=== PATIENT | female | born 1960 | race Caucasian/White ===

== ENCOUNTER 2017-05-28 11:56 | Inpatient (IN) | payer BC ==
[~2017-05-28] VITALS: Ht 162.6 cm; Wt 83.9 kg
[~2017-05-28 11:56] MED LIST: LEVO75TA68 PO; MULT-1379 PO; THYR97.55 PO; TRAZ150T8 PO; WARF-18 PO
--- NOTE | 2017-05-28 11:59 | ER Report ---
History and Physical Time Seen By MD: 11:58 Hx. of Stated Complaint: Alcohol withdrawal diarrhea HPI/ROS Patient is a 57-year-old female chronic alcoholic states that she drinks half of the 5th of vodka daily . binge drink increased her intake the last 2 days last drink was in the middle of the night and since then she has become jittery and nauseated having several bouts of diarrhea Remainder of the 14 system rev: Yes Allergies: Coded Allergies: heparin (Verified Allergy, Severe, 01/05/17) Home Meds Reported Medications Cetirizine Hcl (ZYRTEC) 10 Mg Capsule, 10 MG PO QDAY, CAPSULE 05/28/17 Citalopram Hydrobromide (CELEXA) 10 Mg Tablet, 10 MG PO QDAY, #5 TAB 05/28/17 Thyroid,Pork (NATURE-THROID) 97.5 Mg Tablet, 97.5 MG PO QAM 01/06/17 Warfarin Sodium (WARFARIN SODIUM) 5 Mg Tablet, 2-4 MG PO QODAY, TAB TAKE 2MG ON TUE, SUSAN, SAT. TAKE 4MG ON MON, WED, THU, SUN. 01/05/17 Discontinued Reported Medications Multivits,Th W-Fe,Other Min (THERA-M) 1 Each Tablet, 1 EACH PO QDAY 01/08/17 Trazodone Hcl (TRAZODONE HCL) 150 Mg Tablet, 50-150 MG PO QHS TAKE 50-150 MG NEEDED ABOUT AN HOUR BEFORE YOU PLAN TO GO TO [facility]. 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?? 89 Resp 24 18 10 B/P (MAP) 135/84 (101) Pulse Ox 92 92 05/28/17 05/28/17 05/28/17 05/28/17 14:30 14:31 14:36 14:51 Pulse 89 84 90 Resp 16 13 22 B/P (MAP) 135/83 (100) Pulse Ox 93 05/28/17 05/28/17 05/28/17 05/28/17 15:00 15:06 15:16 15:21 Pulse 86 88 Resp 17 20 B/P (MAP) 131/82 (98) O2 Flow Rate 1.0 05/28/17 05/28/17 15:30 15:36 Pulse 89 Resp 19 B/P (MAP) 132/78 (96) Intake and Output 05/28/17 05/28/17 05/29/17 15:00 23:00 07:00 Intake Total 1000 ml Balance 1000 ml Physical Exam 57-year-old female alert anxious HEENT has normocephalic atraumatic tympanic membranes are non-reddened throat mucous membranes are dry neck is supple no JVD heart rate is tachycardic and sinus tach in the 140s on the monitor lungs clear to auscultation abdomen is obese she has hyperactive bowel sounds moves all extremities no peripheral edema Medical Decision Making Data Points Result Diagram: 05/28/17 1241 05/28/17 1241 Laboratory Hematology Test 05/28/17 12:41 05/28/17 14:02 05/28/17 14:36 Red Blood Count 5.48 M/uL (4.17-5.56) Mean Corpuscular Volume 90.7 fL (80.0-96.0) Mean Corpuscular Hemoglobin 30.6 pg (26.0-33.0) Mean Corpuscular Hemoglobin Concent 33.7 g/dL (32.0-36.0) Red Cell Distribution Width 13.9 % (11.5-14.5) Mean Platelet Volume 8.4 fL (7.2-11.1) Neutrophils (%) (Auto) 74.1 % (39.4-72.5) Lymphocytes (%) (Auto) 18.1 % (17.6-49.6) Monocytes (%) (Auto) 6.4 % (4.1-12.4) Eosinophils (%) (Auto) 0.1 % (0.4-6.7) Basophils (%) (Auto) 1.3 % (0.3-1.4) Nucleated RBC Relative Count (auto) 0.1 /100WBC Neutrophils # (Auto) 2.8 K/uL (2.0-7.4) Lymphocytes # (Auto) 0.7 K/uL (1.3-3.6) Monocytes # (Auto) 0.2 K/uL (0.3-1.0) Eosinophils # (Auto) 0.0 K/uL (0.0-0.5) Basophils # (Auto) 0.0 K/uL (0.0-0.1) Nucleated RBC Absolute Count (auto) 0.00 K/uL Prothrombin Time 70.0 seconds (12.0-14.4) Prothromb Time International Ratio 7.78 Sodium Level 141 mmol/L (137-145) Potassium Level 3.9 mmol/L (3.5-5.0) Chloride Level 106 mmol/L (98-107) Carbon Dioxide Level 20 mmol/L (22-31) Blood Urea Nitrogen 13 mg/dl (7-18) Creatinine 0.90 mg/dl (0.52-1.04) Glomerular Filtration Rate Calc > 60.0 Random Glucose 91 mg/dl (75-110) Calcium Level 8.9 mg/dl (8.4-10.2) Magnesium Level 1.7 mg/dl (1.7-2.2) Total Bilirubin 0.8 mg/dl (0.2-1.3) Aspartate Amino Transf (AST/SGOT) 47 U/L (0-35) Alanine Aminotransferase (ALT/SGPT) 51 U/L (0-56) Alkaline Phosphatase 97 U/L (0-126) Total Protein 6.7 gm/dl (6.3-8.2) Albumin 4.0 g/dl (3.5-5.0) Thyroid Stimulating Hormone (TSH) 0.78 uIU/ml (0.46-4.68) Salicylates Level < 10 mg/L Salicylate Last Dose Date unk Acetaminophen Level < 10 ug/ml Serum Alcohol 47 mg/dl Urine Color Yellow Urine Clarity Clear Urine pH 6.0 pH (4.8-9.5) Urine Specific [place] 1.017 Urine Protein 30 mg/dL (NEGATIVE) Urine Glucose (UA) Negative mg/dL (NEGATIVE) Urine Ketones 20 mg/dL (NEGATIVE) Urine Blood Negative (NEGATIVE) Urine Nitrite Negative (NEGATIVE) Urine Bilirubin Negative (NEGATIVE) Urine Urobilinogen 2.0 mg/dL (0.2-1.9) Urine Leukocyte Esterase Trace (NEGATIVE) Urine RBC 3 /HPF (0-2/HPF) Urine WBC 4 /HPF (0-5/HPF) Urine Squamous Epithelial Cells Many /LPF (</=FEW) Urine Transitional Epithelial Cells Few /LPF (NONE-FEW) Urine Bacteria Negative /HPF (NONE-FEW) Urine Hyaline Casts Few /LPF (NONE-FEW) Urine Mucus Few /HPF (NONE-FEW) Urine Opiates Screen Negative Urine Barbiturates Screen Negative Ur Tricyclic Antidepressants Screen Negative Urine Phencyclidine Screen Negative Urine Amphetamines Screen Negative Urine Benzodiazepines Screen Negative Urine Cocaine Screen Negative Urine Cannabinoids Screen Negative Troponin I < 0.012 ng/ml Chemistry Test 05/28/17 12:41 05/28/17 14:02 05/28/17 14:36 White Blood Count 3.7 k/uL (4.5-11.0) Red Blood Count 5.48 M/uL (4.17-5.56) Hemoglobin 16.8 g/dL (12.0-16.0) Hematocrit 49.7 % (34.0-47.0) Mean Corpuscular Volume 90.7 fL (80.0-96.0) Mean Corpuscular Hemoglobin 30.6 pg (26.0-33.0) Mean Corpuscular Hemoglobin Concent 33.7 g/dL (32.0-36.0) Red Cell Distribution Width 13.9 % (11.5-14.5) Platelet Count 108 K/uL (150-450) Mean Platelet Volume 8.4 fL (7.2-11.1) Neutrophils (%) (Auto) 74.1 % (39.4-72.5) Lymphocytes (%) (Auto) 18.1 % (17.6-49.6) Monocytes (%) (Auto) 6.4 % (4.1-12.4) Eosinophils (%) (Auto) 0.1 % (0.4-6.7) Basophils (%) (Auto) 1.3 % (0.3-1.4) Nucleated RBC Relative Count (auto) 0.1 /100WBC Neutrophils # (Auto) 2.8 K/uL (2.0-7.4) Lymphocytes # (Auto) 0.7 K/uL (1.3-3.6) Monocytes # (Auto) 0.2 K/uL (0.3-1.0) Eosinophils # (Auto) 0.0 K/uL (0.0-0.5) Basophils # (Auto) 0.0 K/uL (0.0-0.1) Nucleated RBC Absolute Count (auto) 0.00 K/uL Prothrombin Time 70.0 seconds (12.0-14.4) Prothromb Time International Ratio 7.78 Glomerular Filtration Rate Calc > 60.0 Calcium Level 8.9 mg/dl (8.4-10.2) Magnesium Level 1.7 mg/dl (1.7-2.2) Total Bilirubin 0.8 mg/dl (0.2-1.3) Aspartate Amino Transf (AST/SGOT) 47 U/L (0-35) Alanine Aminotransferase (ALT/SGPT) 51 U/L (0-56) Alkaline Phosphatase 97 U/L (0-126) Total Protein 6.7 gm/dl (6.3-8.2) Albumin 4.0 g/dl (3.5-5.0) Thyroid Stimulating Hormone (TSH) 0.78 uIU/ml (0.46-4.68) Salicylates Level < 10 mg/L Salicylate Last Dose Date unk Acetaminophen Level < 10 ug/ml Serum Alcohol 47 mg/dl Urine Color Yellow Urine Clarity Clear Urine pH 6.0 pH (4.8-9.5) Urine Specific [place] 1.017 Urine Protein 30 mg/dL (NEGATIVE) Urine Glucose (UA) Negative mg/dL (NEGATIVE) Urine Ketones 20 mg/dL (NEGATIVE) Urine Blood Negative (NEGATIVE) Urine Nitrite Negative (NEGATIVE) Urine Bilirubin Negative (NEGATIVE) Urine Urobilinogen 2.0 mg/dL (0.2-1.9) Urine Leukocyte Esterase Trace (NEGATIVE) Urine RBC 3 /HPF (0-2/HPF) Urine WBC 4 /HPF (0-5/HPF) Urine Squamous Epithelial Cells Many /LPF (</=FEW) Urine Transitional Epithelial Cells Few /LPF (NONE-FEW) Urine Bacteria Negative /HPF (NONE-FEW) Urine Hyaline Casts Few /LPF (NONE-FEW) Urine Mucus Few /HPF (NONE-FEW) Urine Opiates Screen Negative Urine Barbiturates Screen Negative Ur Tricyclic Antidepressants Screen Negative Urine Phencyclidine Screen Negative Urine Amphetamines Screen Negative Urine Benzodiazepines Screen Negative Urine Cocaine Screen Negative Urine Cannabinoids Screen Negative Troponin I < 0.012 ng/ml Coagulation Test 05/28/17 12:41 Prothrombin Time 70.0 seconds Prothromb Time International Ratio 7.78 Toxicology Test 05/28/17 12:41 05/28/17 14:02 Salicylates Level < 10 mg/L Salicylate Last Dose Date unk Acetaminophen Level < 10 ug/ml Serum Alcohol 47 mg/dl Urine Opiates Screen Negative Urine Barbiturates Screen Negative Ur Tricyclic Antidepressants Screen Negative Urine Phencyclidine Screen Negative Urine Amphetamines Screen Negative Urine Benzodiazepines Screen Negative Urine Cocaine Screen Negative Urine Cannabinoids Screen Negative Urinalysis Test 05/28/17 14:02 Urine Color Yellow Urine Clarity Clear Urine pH 6.0 pH (4.8-9.5) Urine Specific [place] 1.017 Urine Protein 30 mg/dL (NEGATIVE) Urine Glucose (UA) Negative mg/dL (NEGATIVE) Urine Ketones 20 mg/dL (NEGATIVE) Urine Blood Negative (NEGATIVE) Urine Nitrite Negative (NEGATIVE) Urine Bilirubin Negative (NEGATIVE) Urine Urobilinogen 2.0 mg/dL (0.2-1.9) Urine Leukocyte Esterase Trace (NEGATIVE) Urine RBC 3 /HPF (0-2/HPF) Urine WBC 4 /HPF (0-5/HPF) Urine Squamous Epithelial Cells Many /LPF (</=FEW) Urine Transitional Epithelial Cells Few /LPF (NONE-FEW) Urine Bacteria Negative /HPF (NONE-FEW) Urine Hyaline Casts Few /LPF (NONE-FEW) Urine Mucus Few /HPF (NONE-FEW) EKG/Imaging EKG Interpretation ekg at 1215 sinus tach rate 143 variable on bedside monitor, st depression inferiorly secondary to rate , 2nd EKG at 1422 normal sinus rate 92 QTCs 452 ED Course/Re-evaluation Clinical Indication for ER IV: Hydration ED Course On admission patient had heart rate of 140s initial EKG showed some ST depression inferior leads on negative troponin at that time was repeated 2 hours later after patient received a liter of normal saline banana bag at 1 25 mL an hour 2 mg of Ativan IV and the 2nd EKG showing normal sinus rhythm no ST changes 2nd troponin is negative Re-evaluation Dr. Stephen called he asked us to admit medically because of the patient's elevated INR of 7.[address] De La Cruz and he agrees to admit this patient. inr was elevated 5 mg coumadin po Decision to Disposition Date: May 28, 2017 Decision to Disposition Time: 15:23 Depart Departure Latest Vital Signs Vital Signs Date Time Temp Pulse Resp B/P (MAP) Pulse Ox O2 Delivery O2 Flow Rate FiO2 05/28/17 15:36 89 19 05/28/17 15:30 132/78 (96) 05/28/17 15:16 1.0 05/28/17 14:31 93 05/28/17 12:02 98.0 Room Air Impression: Primary Impression: Alcohol abuse Additional Impressions: Alcohol withdrawal Supratherapeutic INR EKG abnormality Condition: Improved Disposition: Admitted from ER Problem Qualifiers LUIS BERRY May 28, 2017 11:59
[2017-05-28] MEDS ORDERED: NS(*) 0.9% 1000 ML BAG 1,000 ML IV ONE (12:07)
[2017-05-28] MEDS ORDERED: THIAMINE HCL(*) 200 MG/2 ML IN 100 MG, FOLIC ACID(*) 50 MG/10 ML INJ 1 MG, MULTIVITAMIN... IV ONE (12:07)
[2017-05-28] MEDS ORDERED: LORazepam 2 MG/ML VIAL IVP ONE (12:10)
[2017-05-28] MEDS ORDERED: CETI10CA8 PO (12:10)
[2017-05-28] MEDS ORDERED: CITA-155 PO (12:10)
[2017-05-28 12:54] LABS: PLATELET COUNT, AUTOMATED 108 K/uL (150-450)
[2017-05-28 13:23] LABS: INR 7.78
[2017-05-28] MEDS ORDERED: PHYTONADIONE 5 MG TAB PO ONE (13:30)
--- NOTE | 2017-05-28 13:48 | EKG ---
FACILITY: [facility] PATIENT NAME: MARÍA JEFFREY : [id number] MR: [id number] V: [id number] EXAM DATE: ORDERING PHYSICIAN: LUIS BERRY TECHNOLOGIST: MICAELA Yarbrough Reason : CHEMICAL EXP. Blood Pressure : / mmHG Vent. Rate : 143 BPM Atrial Rate : 143 BPM P-R Int : 164 ms QRS Dur : 068 ms QT Int : 318 ms P-R-T Axes : 000 -32 -70 degrees QTc Int : 490 ms Sinus tachycardia with occasional Left axis deviation Marked ST abnormality, possible inferior subendocardial injury Abnormal ECG When compared with ECG of 05-JAN-2017 20:59, Significant changes have occurred Confirmed by YULIANA VOGT ([id number]) on 05/29/2017 2:32:32 AM Referred By: ER Confirmed By:YULIANA VOGT
--- NOTE | 2017-05-28 14:28 | EKG ---
FACILITY: [facility] PATIENT NAME: MARÍA JEFFREY : [id number] MR: [id number] V: [id number] EXAM DATE: ORDERING PHYSICIAN: LUIS BERRY TECHNOLOGIST: MICAELA Yarbrough Reason : REPEAT Blood Pressure : / mmHG Vent. Rate : 092 BPM Atrial Rate : 092 BPM P-R Int : 148 ms QRS Dur : 072 ms QT Int : 366 ms P-R-T Axes : 012 -07 -11 degrees QTc Int : 452 ms Sinus rhythm with premature atrial complexes Otherwise normal ECG When compared with ECG of 28-MAY-2017 12:15, fusion complexes are no longer present premature ventricular complexes are no longer present premature atrial complexes are now present Vent. rate has decreased BY [address] no longer depressed in Inferior leads ST no longer depressed in Anterolateral leads T wave inversion less evident in Inferior leads Confirmed by YULIANA VOGT ([id number]) on 05/29/2017 2:33:05 AM Referred By: KRISTI Confirmed By:YULIANA VOGT
[2017-05-28 16:31] VITALS: BP 119/78
[2017-05-28] MEDS ORDERED: DIAZEPAM 10 MG TAB PO PRN ×2 (17:15)
--- NOTE | 2017-05-28 17:24 | History & Physical ---
History of Present Illness Chief Complaint Alcohol withdrawal History of Present Illness This patient presented to the emergency room complaining of feeling lightheaded and shaking. She desires alcohol cessation and admission to [facility], but was found to have an elevated INR. She reports taking warfarin for a history of clotting disorder. Her dose was recently decreased. History Problems: (1) Mesenteric thrombosis (2) History of appendectomy (3) History of cholecystectomy (4) History of bowel resection (5) Hypothyroid Home Meds Reported Medications Cetirizine Hcl (ZYRTEC) 10 Mg Capsule, 10 MG PO QDAY, CAPSULE 05/28/17 Citalopram Hydrobromide (CELEXA) 10 Mg Tablet, 10 MG PO QDAY, #5 TAB 05/28/17 Thyroid,Pork (NATURE-THROID) 97.5 Mg Tablet, 97.5 MG PO QAM 01/06/17 Warfarin Sodium (WARFARIN SODIUM) 5 Mg Tablet, 2-4 MG PO QODAY, TAB TAKE 2MG ON TUE, SUSAN, SAT. TAKE 4MG ON THU, THU, THU, SUN. 01/05/17 Discontinued Reported Medications Multivits,Th W-Fe,Other Min (THERA-M) 1 Each Tablet, 1 EACH PO QDAY 01/08/17 Trazodone Hcl (TRAZODONE HCL) 150 Mg Tablet, 50-150 MG PO QHS TAKE 50-150 MG NEEDED ABOUT AN HOUR BEFORE YOU PLAN TO GO TO [facility]. 01/08/17 Allergies: Coded Allergies: heparin (Verified Allergy, Severe, 01/05/17) Hx Smoking: No Smoking Status: Never Smoker Exposure to Second Hand Smoke?: No Caffeine Intake: Coffee Caffeine/Cups Per Day: 1 Hx Alcohol Use: Yes Alcohol Withdrawl Symptoms: Tremors, Heart Racing Hx Substance Use Disorder: No Social Drug Use: Never Review of Systems All Systems Reviewed/Normal: Yes Exam Vital Signs Vital Signs Date Time Temp Pulse Resp B/P (MAP) Pulse Ox O2 Delivery O2 Flow Rate FiO2 05/28/17 16:31 98.0 80 16 119/78 (92) 96 Nasal Cannula 2.0 Neuro: No Gross deficits Eyes: PERRLA Cardiovascular: Regular Rate and Rhythm Respiratory: Clear to Auscultation GI: Abd Soft and Non-Tender Extremities: No Edema Integumentary: No Cyanosis Medical Decision Making Data Points Result Diagram: 05/28/17 1241 05/28/17 1241 Item Value Date Time Prothromb Time International Ratio 7.78 *H 05/28/17 1241 Assessment and Plan Problems: (1) Alcohol withdrawal Assessment & Plan: She has been placed on CIWA protocol. Thiamine has also been ordered. She desires transfer to [facility] once her acute medical issues have resolved. (2) Supratherapeutic INR Status: Acute Assessment & Plan: She was previously on Xarelto secondary to a history of mesenteric thrombosis. She converted to warfarin when she lost insurance, but now has reestablished medical coverage. She received a dose of vitamin K in the emergency department and daily INR monitoring has been ordered. There is no evidence of active bleeding. The plan will be to convert her back to Xarelto once her INR is improved. (3) Hypothyroid Assessment & Plan: She is on chronic treatment with thyroid [place]. Copies to: KELLY ISSA DO Venous Thromboembolism Antithrombotics Is Pt On Any Antithrombotics?: Yes Exam Sepsis Risk: No Definite Risk YULIANA VOGT DO May 28, 2017 17:24
[2017-05-28 19:00] VITALS: BP 130/62
[2017-05-28 22:53] VITALS: BP 132/76
[2017-05-29 03:11] VITALS: BP 132/76
[2017-05-29 06:11] LABS: PLATELET COUNT, AUTOMATED 90 K/uL (150-450)
[2017-05-29 06:15] LABS: INR 3.83
[2017-05-29] MEDS ORDERED: THYROID PORK 97.5 MG PO SCH ×2 (06:30→09:00)
[2017-05-29 08:12] VITALS: BP 146/83
[2017-05-29] MEDS ORDERED: FOLI-68 PO (08:16)
[2017-05-29] MEDS ORDERED: THIA100T58 PO (08:16)
--- NOTE | 2017-05-29 08:27 | Hospitalist Depart ---
Discharge Summary Reason for Hosp/Final Diag: (1) Alcohol withdrawal Hospital Course & Plan: She was placed on CIWA protocol and B vitamin supplementation. She did well while on medical floor. She will be transferred to [facility], as her acute medical issues have been stabilized. The Hospitalist Service will continue to manage her anticoagulation therapy while she is on the [facility] unit. (2) Supratherapeutic INR Status: Acute Hospital Course & Plan: She was previously on Xarelto secondary to a history of mesenteric thrombosis. She was converted to warfarin when she lost insurance , but now has re-established medical coverage. She received a dose of vitamin K in the emergency department and daily INR monitoring was ordered. She has no evidence of active bleeding. Her INR improved to 3.83. The plan will be to convert her back to Xarelto once her INR is <3.0. She will have daily INR monitoring while on [facility] unit. (3) Hypothyroid Hospital Course & Plan: She is on chronic treatment with pork thyroid. She will be on Lindsey thyroid 90mg daily while hospitalized and resume her pork thyroid when discharged. Departure Weight (Pounds): 185 Result Diagram: 05/29/17 0536 05/29/17 0536 Item Value Date Time Prothrombin Time 70.0 seconds H 05/28/17 1241 Prothromb Time International Ratio 7.78 *H 05/28/17 1241 Prothrombin Time 39.3 seconds H 05/29/17 0536 Prothromb Time International Ratio 3.83 05/29/17 0536 Albumin 4.0 g/dl 05/28/17 1241 Total Protein 6.7 gm/dl 05/28/17 1241 Alkaline Phosphatase 97 U/L 05/28/17 1241 Alanine Aminotransferase (ALT/SGPT) 51 U/L 05/28/17 1241 Aspartate Amino Transf (AST/SGOT) 47 U/L H 05/28/17 1241 Total Bilirubin 0.8 mg/dl 05/28/17 1241 Magnesium Level 1.7 mg/dl 05/28/17 1241 Calcium Level 8.9 mg/dl 05/28/17 1241 Random Glucose 91 mg/dl 05/28/17 1241 Glomerular Filtration Rate Calc > 60.0 05/28/17 1241 Creatinine 0.90 mg/dl 05/28/17 1241 Carbon Dioxide Level 20 mmol/L L 05/28/17 1241 Blood Urea Nitrogen 13 mg/dl 05/28/17 1241 Chloride Level 106 mmol/L 05/28/17 1241 Potassium Level 3.9 mmol/L 05/28/17 1241 Sodium Level 141 mmol/L 05/28/17 1241 Thyroid Stimulating Hormone (TSH) 0.78 uIU/ml 05/28/17 1241 Troponin I < 0.012 ng/ml 05/28/17 1241 Troponin I < 0.012 ng/ml 05/28/17 1436 Serum Alcohol 47 mg/dl 05/28/17 1241 Urine Cannabinoids Screen Negative 05/28/17 1402 Urine Cocaine Screen Negative 05/28/17 1402 Urine Benzodiazepines Screen Negative 05/28/17 1402 Urine Amphetamines Screen Negative 05/28/17 1402 Urine Phencyclidine Screen Negative 05/28/17 1402 Ur Tricyclic Antidepressants Screen Negative 05/28/17 1402 Urine Barbiturates Screen Negative 05/28/17 1402 Urine Opiates Screen Negative 05/28/17 1402 Acetaminophen Level < 10 ug/ml 05/28/17 1241 Salicylate Last Dose Date unk 05/28/17 1241 Salicylates Level < 10 mg/L 05/28/17 1241 Urine Mucus Few /HPF 05/28/17 1402 Urine Hyaline Casts Few /LPF 05/28/17 1402 Urine Bacteria Negative /HPF 05/28/17 1402 Urine Transitional Epithelial Cells Few /LPF 05/28/17 1402 Urine Squamous Epithelial Cells Many /LPF H 05/28/17 1402 Urine WBC 4 /HPF 05/28/17 1402 Urine RBC 3 /HPF 05/28/17 1402 Urine Leukocyte Esterase Trace H 05/28/17 1402 Urine Urobilinogen 2.0 mg/dL 05/28/17 1402 Urine Bilirubin Negative 05/28/17 1402 Urine Nitrite Negative 05/28/17 1402 Urine Blood Negative 05/28/17 1402 Urine Ketones 20 mg/dL H 05/28/17 1402 Urine Glucose (UA) Negative mg/dL 05/28/17 1402 Urine Protein 30 mg/dL 05/28/17 1402 Urine Specific [place] 1.017 05/28/17 1402 Urine pH 6.0 pH 05/28/17 1402 Urine Clarity Clear 05/28/17 1402 Urine Color Yellow 05/28/17 1402 White Blood Count 3.7 k/uL L 05/28/17 1241 Hemoglobin 16.8 g/dL H 05/28/17 1241 Hematocrit 49.7 % H 05/28/17 1241 Platelet Count 108 K/uL L 05/28/17 1241 EKG PATIENT NAME: MARÍA JEFFREY : [id number] MR: [id number] V: [id number] EXAM DATE: ORDERING PHYSICIAN: LUIS BERRY TECHNOLOGIST: MICAELA Yarbrough Reason : CHEMICAL EXP. Blood Pressure : / mmHG Vent. Rate : 143 BPM Atrial Rate : 143 BPM P-R Int : 164 ms QRS Dur : 068 ms QT Int : 318 ms P-R-T Axes : 000 -32 -70 degrees QTc Int : 490 ms Sinus tachycardia with occasional Left axis deviation Marked ST abnormality, possible inferior subendocardial injury Abnormal ECG When compared with ECG of 05-JAN-2017 20:59, Significant changes have occurred Confirmed by YULIANA VOGT ([id number]) on 05/29/2017 2:32:32 AM Referred By: ER Confirmed By:YULIANA VOGT Condition: Improved Discharge: [facility] Follow-Up Labs: INR (daily until INR <3.0) Discharge Instructions Home Meds Active Scripts Thiamine Hcl (VITAMIN B-1) 100 Mg Tablet, 100 MG PO QDAY for 30 Days, TAB Prov:EDITH THOMPSON MD 05/29/17 Folic Acid (FOLIC ACID) 1 Mg Tablet, 1 MG PO QDAY for 30 Days, TAB Prov:EDITH THOMPSON MD 05/29/17 Reported Medications Cetirizine Hcl (ZYRTEC) 10 Mg Capsule, 10 MG PO QDAY, CAPSULE 05/28/17 Citalopram Hydrobromide (CELEXA) 10 Mg Tablet, 10 MG PO QDAY, #5 TAB 05/28/17 Thyroid,Pork (NATURE-THROID) 97.5 Mg Tablet, 97.5 MG PO QAM 01/06/17 Discontinued Reported Medications Warfarin Sodium (WARFARIN SODIUM) 5 Mg Tablet, 2-4 MG PO QODAY, TAB TAKE 2MG ON TUE, SUSAN, SAT. TAKE 4MG ON MON, WED, FRI, SUN. 8/28/17 Multivits,Th W-Fe,Other Min (THERA-M) 1 Each Tablet, 1 EACH PO QDAY 01/08/17 Trazodone Hcl (TRAZODONE HCL) 150 Mg Tablet, 50-150 MG PO QHS TAKE 50-150 MG NEEDED ABOUT AN HOUR BEFORE YOU PLAN TO GO TO [facility]. 01/08/17 Diet: Regular Activity: As Tolerated Special Instructions: Daily INR. Plan on transition to Xarelto 20mg daily when INR <3.0. She will be followed by Hospitalist Service for anticoagulation therapy. Venous Thromboembolism Antithrombotics Is Pt On Any Antithrombotics?: Yes EDITH THOMPSON MD May 29, 2017 08:27
[2017-05-29] MEDS ORDERED: FOLIC ACID 1 MG TAB PO SCH (09:00)
[2017-05-29] MEDS ORDERED: THIAMINE HCL 100 MG TAB PO SCH (09:00)
[2017-05-29] MEDS ORDERED: CITALOPRAM HYDROBROM 20 MG TAB PO SCH (09:00)
[2017-05-29] MEDS ORDERED: TRAZ-163 PO (11:48)
[2017-05-30] MEDS ORDERED: INFLUENZA VIRUS VAC 0.5 ML SYR IM ONLY ONE (09:00)
== END 2017-05-29 10:45 | DRG 897 ==
LOC: ER 12:00 → MED 15:39 → BHS 05-29 10:45 → MED 05-29 10:45
PROVIDERS: ADMIT Family Medicine; ATTEND Family Medicine
DX: F10.230 Alcohol dependence with withdrawal, uncomplicated (principal); R79.1 Abnormal coagulation profile; E03.9 Hypothyroidism, unspecified; Y90.2 Blood alcohol level of 40-59 mg/100 ml; Z98.84 Bariatric surgery status; Z90.49 Acquired absence of other specified parts of digestive tract; Z90.710 Acquired absence of both cervix and uterus; Z88.8 Allergy status to other drugs, medicaments and biological substances
CPT/HCPCS: 36415; 80305; 80320; 80329; 81001; 82040; 82247; 82310; 82374; 82435; 82565; 82947; 83735; 84075; 84132; 84155; 84295; 84443; 84450; 84460; 84484; 84520; 85025; 85610; 93005; 96365; 96366; 96375; 99284; J2060; J3411; J3475; J7030

== ENCOUNTER 2017-05-29 10:45 | Inpatient (IN) | payer BC ==
[~2017-05-29] VITALS: Ht 162.6 cm; Wt 83.9 kg
[~2017-05-29 10:45] MED LIST changes: +CETI10CA8 PO; +CITA-155 PO; +FOLI-68 PO; +THIA100T58 PO
[2017-05-29 11:00] VITALS: BP 159/88
[2017-05-29] MEDS ORDERED: MAG HYD/AL HYD/SIMETH 30ML UDC PO PRN (11:40)
[2017-05-29] MEDS ORDERED: TRAZ-163 PO (11:48)
[2017-05-29] MEDS: LORazepam 1 MG TAB PO PRN ×3 (12:00→19:07)
[2017-05-29] MEDS ORDERED: DIAZEPAM 10 MG TAB PO PRN ×2 (12:45→12:50)
[2017-05-29 13:15] VITALS: BP 145/66
[2017-05-29] MEDS: THYROID 60 MG TAB PO SCH (13:37)
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
[2017-05-29 18:05] VITALS: BP 138/78
[2017-05-29] MEDS: traZODone HCL 50 MG TAB PO SCH (20:59)
[2017-05-30 06:17] VITALS: BP 130/86
[2017-05-30 06:51] LABS: PLATELET COUNT, AUTOMATED 67 K/uL (150-450)
[2017-05-30] MEDS: CITALOPRAM HYDROBROM 20 MG TAB PO SCH (08:29)
[2017-05-30] MEDS: THIAMINE HCL 100 MG TAB PO SCH (08:29)
[2017-05-30] MEDS: FOLIC ACID 1 MG TAB PO SCH (08:29)
[2017-05-30] MEDS: MULTIVITAMINS PO SCH (08:29)
[2017-05-30] MEDS: THYROID 60 MG TAB PO SCH (08:29)
--- NOTE | 2017-05-30 09:52 | Miscellaneous Provider Note ---
Miscellaneous Provider Note Note Ms. Miranda's INR is now down to 2.0. Will transition to Xarelto 20mg PO qHS. She will no longer take the warfarin and will not need any further checks on her protime/INR. I have written a Rx for 30 days of the Xarelto. She will follow up with Dr. Krishnamurthy as an outpatient to manage her anticoagulation. EDITH THOMPSON MD May 30, 2017 09:52
[2017-05-30] MEDS ORDERED: RIVAROXABAN 10 MG TAB PO SCH ×2 (10:00→21:00)
[2017-05-30 12:20] VITALS: BP 155/72
--- NOTE | 2017-05-30 16:10 | BHS Progress Note ---
[facility] - Subjective Progress Notes Subjective Pt seen with team. Pt feeling better today. Last Ativan was about 12 hours ago. Pt denies subjective sx's of alcohol withdrawal at this time. INR has normalized and Dr. Mulligan put her back on Xarelto. Bilirubin increased to 2.6 today, platelet count is low at 76, WBC low at 3; other labs look OK. Pt says she recalls many times throughout her adult years where bilirubin was found to be elevated; pt has had a cholecystectomy. Will monitor labs again tomorrow. Pt motivated for sobriety, talking about her relationship with AA, and with her sponsor. Mood is "OK". Slept well last night with trazedone, appetite is coming back. Suicidal Ideation: None Homicidal Ideation: None [facility] - Objective Physical Exam Vital Signs Vital Signs 05/29/17 05/30/17 23:09 12:20 Temp 99.8 Pulse 92 Resp 16 B/P (MAP) 155/72 (99) Pulse Ox 92 O2 Delivery Room Air FiO2 28.0 Muscle Strength and Tone: WNL Gait and Station: Steady [facility] Medications Reviewed: Side Effects, Benefits of Medication Allergies Reviewed: Yes Mental Status Exam General Appearance: Casual, Well Groomed, Good Eye Contact, Cooperative, Polite , Good Interaction Speech: Clear, Spontaneous, Normal Rate, Normal Volume, Normal Tone Mood: Euthymic Affect: Calm Thought Process: Organized, Logical, Goal Directed Thought Content: No Suicidal Ideation, No Homicidal Ideation, No Delusions, No Auditory Halllucinations, No Visual Hallucinations, No Thought Broadcasting, No Ideas of Reference, No Obsessions, No Compulsions, No Other Sensorium: Clear Cognition: Alert & Oriented-Person, Alert & Oriented-Place, Alert & Oriented- Time, Xafya-Ctvfilam-Pocuihrcx Memory: Immediate, Recent, Remote Intelligence: Average Insight Judgment: Good Result Diagram: 05/30/1762505/30/17625 [facility] Assessment and Plan Nqgf-[id number] Encounter Date: May 30, 2017 Yaqc-el-Bezp Encounter Time: 10:30 [facility] Plan: Admit to Unit, Necessary Precautions, Individual/Group Therapy, Admin /Titrate Meds, Educate Patient Tobacco Medications: Not Appropriate Condition Problems: (1) Alcohol use disorder, severe, dependence (2) Alcohol withdrawal (3) Supratherapeutic INR Status: Acute CHRISTINE LANGSTON MD May 30, 2017 16:10
[2017-05-30 17:19] VITALS: BP 128/89
[2017-05-30] MEDS: traZODone HCL 50 MG TAB PO SCH (20:34)
[2017-05-30 20:58] VITALS: BP 128/72
[2017-05-31 06:20] LABS: PLATELET COUNT, AUTOMATED 68 K/uL (150-450)
[2017-05-31 06:32] LABS: INR 2.33
[2017-05-31 06:44] VITALS: BP 136/84
[2017-05-31] MEDS: MULTIVITAMINS PO SCH (08:27)
[2017-05-31] MEDS: CITALOPRAM HYDROBROM 20 MG TAB PO SCH (08:27)
[2017-05-31] MEDS: THIAMINE HCL 100 MG TAB PO SCH (08:28)
[2017-05-31] MEDS: FOLIC ACID 1 MG TAB PO SCH (08:28)
[2017-05-31] MEDS: THYROID 60 MG TAB PO SCH (08:28)
[2017-05-31] MEDS ORDERED: ACAM333T3 PO ×2 (10:41→10:43)
[2017-05-31 10:53] VITALS: BP 141/78
[2017-05-31] MEDS ORDERED: RIVA10TA PO (10:55)
[2017-05-31] MEDS ORDERED: MULT-7 PO (10:56)
--- NOTE | 2017-05-31 12:43 | BHS Discharge Summary ---
[facility] Discharge Summary Lrvk-nt-Obpm Encounter Date: May 31, 2017 Vxiq-yz-Wbzd Encounter Time: 09:00 Reason-Hosp/Final Diag (DSM-V): (1) Alcohol use disorder, severe, dependence Hospital Course & Plan: Pt was admitted to [facility] and detoxed using NWI protocol with Ativan due to her high t.bilirubin level of 2.6. Detox was uneventful. Pt participated actively in groups and individual therapies. She was in touch with he AA sponsor who came to the hospital to give her a ride home upon discharge-- they made a plan to have the sponsor enter her home with her and dispose of some alcohol she had remaining there. Pt's labs improved with slight decrease in t. bili and ALT/AST, as well as slight upward trend in WBC and platelet count. Pt did some reading about acamprosate and we discussed risks and benefits, and she chose to give it a try, so was discharged with a script for 666mg TID. Pt at no time experienced any suicidal ideation, also, pt stated she has no guns in the home. (2) Alcohol withdrawal Status: Resolved Hospital Course & Plan: above (3) Supratherapeutic INR Status: Acute Hospital Course & Plan: Pt was followed by medicine and restarted xarelto after her INR normalized. She will follow up with Dr. Krishnamurthy. Mental Status Exam General Appearance: Casual, Well Groomed, Good Eye Contact, Cooperative, Polite , Good Interaction Speech: Clear, Spontaneous, Normal Rate, Normal Volume, Normal Tone Mood: Euthymic Affect: Calm Thought Process: Organized, Logical, Goal Directed Thought Content: No Suicidal Ideation, No Homicidal Ideation, No Delusions, No Auditory Halllucinations, No Visual Hallucinations, No Thought Broadcasting, No Ideas of Reference, No Obsessions, No Compulsions, No Other Sensorium: Clear Cognition: Alert & Oriented-Person, Alert & Oriented-Place, Alert & Oriented- Time, Nqnyo-Kfjubkge-Qqzdapova Memory: Immediate, Recent, Remote Intelligence: Average Insight Judgment: Good Departure Result Diagram: 05/31/1760905/31/17609 Condition: Improved Discharge to: Home Discharge Instructions Home Meds Active Scripts Thiamine Hcl (VITAMIN B-1) 100 Mg Tablet, 100 MG PO QDAY for 30 Days, TAB Prov:EDITH THOMPSON MD 05/29/17 Folic Acid (FOLIC ACID) 1 Mg Tablet, 1 MG PO QDAY for 30 Days, TAB Prov:EDITH THOMPSON MD 05/29/17 Reported Medications Multivits,Ca,Minerals/Iron/FA (Thera M Plus Tablet) 1 Each Tablet, PO QDAY 05/31/17 Rivaroxaban 10 MG (Xarelto 10 MG) 10 Mg Tablet, 20 PO QHS, #30 1 Refill 05/31/17 Acamprosate Calcium (ACAMPROSATE CALCIUM) 333 Mg Tablet.dr, 666 MG PO TID, #90 05/31/17 Trazodone Hcl (TRAZODONE HCL) 100 Mg Tablet, 100 MG PO QHS for 30 Days, #30 TAB 05/29/17 Cetirizine Hcl (ZYRTEC) 10 Mg Capsule, 10 MG PO QDAY, CAPSULE 05/28/17 Citalopram Hydrobromide (CELEXA) 10 Mg Tablet, 20 MG PO QDAY, TAB purchace otc 05/28/17 Thyroid,Pork (NATURE-THROID) 97.5 Mg Tablet, 97.5 MG PO QAM 01/06/17 Discontinued Reported Medications Acamprosate Calcium (ACAMPROSATE CALCIUM) 333 Mg Tablet.dr, 666 MG PO TID, #90 05/31/17 Warfarin Sodium (WARFARIN SODIUM) 5 Mg Tablet, 2-4 MG PO QODAY, TAB TAKE 2MG ON TUE, SUSAN, SAT. TAKE 4MG ON MON, WED, FRI, SUN. 01/05/17 Multivits,Th W-Fe,Other Min (THERA-M) 1 Each Tablet, 1 EACH PO QDAY 01/08/17 Trazodone Hcl (TRAZODONE HCL) 150 Mg Tablet, 50-150 MG PO QHS TAKE 50-150 MG NEEDED ABOUT AN HOUR BEFORE YOU PLAN TO GO TO [facility]. 01/08/17 Diet: Regular Activity: As Tolerated Problem Qualifiers (1) Alcohol withdrawal: Complication of substance-induced condition: uncomplicated Qualified Codes: F10.230 - Alcohol dependence with withdrawal, uncomplicated CHRISTINE LANGSTON MD May 31, 2017 12:43
== END 2017-05-31 11:55 | disposition home or self-care (01) | DRG 897 ==
LOC: BHS 10:45
PROVIDERS: ADMIT Psychiatry & Neurology Psychiatry; ATTEND Psychiatry & Neurology Psychiatry
PROC: 5A09357 Assistance with Respiratory Ventilation, Less than 24 Consecutive Hours, Continuous Positive Airway Pressure (ICD-10-PCS; principal; 2017-05-29)
DX: F10.230 Alcohol dependence with withdrawal, uncomplicated (principal); R79.1 Abnormal coagulation profile; E03.9 Hypothyroidism, unspecified; G47.33 Obstructive sleep apnea (adult) (pediatric); Y90.2 Blood alcohol level of 40-59 mg/100 ml; Z79.01 Long term (current) use of anticoagulants; Z81.1 Family history of alcohol abuse and dependence; Z81.3 Family history of other psychoactive substance abuse and dependence; Z81.8 Family history of other mental and behavioral disorders; Z99.81 Dependence on supplemental oxygen; Z98.84 Bariatric surgery status; Z62.812 Personal history of neglect in childhood; Z91.411 Personal history of adult psychological abuse; Z90.49 Acquired absence of other specified parts of digestive tract
CPT/HCPCS: 36415; 82040; 82247; 82310; 82374; 82435; 82565; 82947; 84075; 84132; 84155; 84295; 84450; 84460; 84520; 85025; 85610; 94660

== ENCOUNTER → 2018-07-20 | Outpatient (CLI) | payer BC ==
[~2018-07-20] MED LIST changes: +ABILIF5PT PO; +ACAM333T3 PO; +MULT-7 PO; +RIVA10TA PO; +THIA100T20 PO; -THIA100T58 PO; +TRAZ100T31 PO; -WARF-18 PO; +WARF5TAB23 PO
--- NOTE | 2018-07-21 08:49 | RADIOLOGY IMAGING REPORT ---
[facility] PATIENT NAME: MARÍA JEFFREY : [id number] MR: [id number] V: [id number] EXAM DATE: ORDERING PHYSICIAN: KELLY ISSA TECHNOLOGIST: Kari Doherty PROCEDURE:BILATERAL DIGITAL SCREENING MAMMOGRAM WITH CAD ASSISTED INTERPRETATION & 3D TOMOSYNTHESIS COMPARISON:Prior mammograms 10/18/08. INDICATIONS:screening FINDINGS: There are scattered areas of fibroglandular density throughout the breasts. The parenchymal pattern has remained stable allowing for difference in mammographic technique & patient positioning. DIAGNOSTIC CATEGORY 1--NEGATIVE. RECOMMENDATIONS: ROUTINE MAMMOGRAM AND CLINICAL EVALUATION. IMPRESSION: BIRADS 1: Negative. No significant abnormality is seen. Dictated by: Betty Bower M.D. on 07/20/2018 at 16:21 Transcribed by: KUN on 07/21/2018 at 8:41 Approved by: Betty Bower M.D. on 07/21/2018 at 8:48 [facility]
== END ==
LOC: MAMO 01:39
PROVIDERS: ATTEND Family Medicine
DX: Z12.31 Encounter for screening mammogram for malignant neoplasm of breast (principal)
CPT/HCPCS: 77063; 77067

== ENCOUNTER 2018-09-04 00:49 | Emergency (ER) | payer BC ==
--- NOTE | 2018-09-04 00:52 | ER Report ---
History and Physical Time Seen By MD: 00:51 HPI/ROS CHIEF COMPLAINT: Upper respiratory infection, hypoxia HISTORY OF PRESENT ILLNESS: 58-year-old female with a history of chronic anticoagulation for bowel thrombosis, status post bowel resection on Xarelto began getting sick last Thursday. She was seen at urgent care on chest x-ray was negative for infiltrate. She was treated with doxycycline and prednisone taper. She was getting gradually better and last night she began to feel short of breath again. She presents with a pulse ox of 84% on room air here in the emergency department tonight. She is diaphoretic and pale. Patient notes a productive cough of mostly clear watery sputum. REVIEW OF SYSTEMS: Respiratory: As above Cardiovascular: No chest pain, no palpitations. Gastrointestinal: No vomiting, no abdominal pain. Musculoskeletal: No back pain. Allergies: Coded Allergies: heparin (Verified Allergy, Severe, 09/04/18) Home Meds Active Scripts Cefuroxime Axetil (CEFUROXIME) 500 Mg Tablet, 500 MG PO BID for infection, #14 TAB Prov:ROMARIO DUMONT DO 09/04/18 Reported Medications Aripiprazole (ABILIFY) 5 Mg Tablet, 5 MG PO QDAY, #10 TAB 04/27/18 Rivaroxaban 10 MG (Xarelto 10 MG) 10 Mg Tablet, 20 PO QHS, #30 1 Refill 05/31/17 Cetirizine Hcl (ZYRTEC) 10 Mg Capsule, 10 MG PO QDAY, CAPSULE 05/28/17 Citalopram Hydrobromide (CELEXA) 10 Mg Tablet, 30 MG PO QDAY, TAB purchace otc 05/28/17 Thyroid,Pork (NATURE-THROID) 97.5 Mg Tablet, 97.5 MG PO QAM 01/06/17 Past Medical/Surgical History Past medical history of hypothyroidism , gastric bypass, alcoholism she has had her appendix removed said her gallbladder removed she's had a hysterectomy and has a clotting disorder ( 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 ), supratherapeutic INR near 8 Reviewed Nurses Notes: Yes Old Medical Records Reviewed: Yes Hx Smoking: No (QUIT 1979, 05/12 PPD X 2 YRS) Smoking Status: Former Smoker Exposure to Second Hand Smoke?: No Hx Substance Use Disorder: No Hx Alcohol Use: Yes Constitutional Vital Sign - Last 24 Hours 409/04/18 09/04/18 09/04/18 00:53 00:53 01:04 01:13 Temp 98.7 Pulse 83 83 Resp 28 22 B/P (MAP) 156/89 Pulse Ox 84 O2 Delivery Room Air O2 Flow Rate 2.0 2.0 09/04/18 09/04/18 09/04/18 09/04/18 01:19 01:30 01:34 01:39 Pulse 79 80 78 Resp 13 26 B/P (MAP) 140/70 (93) Pulse Ox 98 92 09/04/18 09/04/18 09/04/18 09/04/18 01:44 01:54 01:59 02:00 Pulse ??? 77 73 Resp 17 B/P (MAP) 129/72 (91) Pulse Ox 93 94 09/04/18 09/04/18 09/04/18 09/04/18 02:04 02:09 02:14 02:19 Pulse 75 77 77 75 Resp Pulse Ox 93 90 88 86 O2 Delivery Room Air 09/04/18 09/04/18 09/04/18 02:24 02:30 02:54 Pulse 73 73 Resp 30 B/P (MAP) 117/64 (81) Pulse Ox 91 89 Physical Exam Vital signs stable, afebrile, pulse ox 84% on room air, 2 L brings to low 90s easily General Appearance: The patient is alert, has no immediate need for airway protection and no current signs of toxicity. Diaphoretic, warm to the touch HEENT: Pupils equal and round no injection. TMs normal, oropharynx with moderate erythema, no exudate or petechiae Respiratory: Chest is non tender, decreased breath sounds throughout, faint expiratory wheezing noted Cardiac: regular rate and rhythm Gastrointestinal: Abdomen is soft and non tender, no masses, bowel sounds normal. Musculoskeletal: Neck: Neck is supple and non tender. Extremities have full range of motion and are non tender. Trace edema bilaterally Skin: No rashes or lesions. DIFFERENTIAL DIAGNOSIS: After history and physical exam differential diagnosis was considered for shortness of breath including but not limited to pulmonary infectious process, COPD, asthma, pulmonary embolus and congestive heart failure. Medical Decision Making Data Points Result Diagram: 09/04/1810409/04/18104 Laboratory Hematology Test 09/04/18 01:05 Red Blood Count 5.08 M/uL (4.17-5.56) Mean Corpuscular Volume 90.3 fL (80.0-96.0) Mean Corpuscular Hemoglobin 29.7 pg (26.0-33.0) Mean Corpuscular Hemoglobin Concent 32.9 g/dL (32.0-36.0) Red Cell Distribution Width 13.4 % (11.5-14.5) Mean Platelet Volume 9.2 fL (7.2-11.1) Neutrophils (%) (Auto) 86.9 % (39.4-72.5) Lymphocytes (%) (Auto) 7.1 % (17.6-49.6) Monocytes (%) (Auto) 5.7 % (4.1-12.4) Eosinophils (%) (Auto) 0.0 % (0.4-6.7) Basophils (%) (Auto) 0.3 % (0.3-1.4) Nucleated RBC Relative Count (auto) 0.5 /100WBC Neutrophils # (Auto) 4.3 K/uL (2.0-7.4) Lymphocytes # (Auto) 0.4 K/uL (1.3-3.6) Monocytes # (Auto) 0.3 K/uL (0.3-1.0) Eosinophils # (Auto) 0.0 K/uL (0.0-0.5) Basophils # (Auto) 0.0 K/uL (0.0-0.1) Nucleated RBC Absolute Count (auto) 0.02 K/uL Sodium Level 141 mmol/L (137-145) Potassium Level 3.7 mmol/L (3.5-5.0) Chloride Level 106 mmol/L (98-107) Carbon Dioxide Level 25 mmol/L (22-31) Blood Urea Nitrogen 22 mg/dl (7-18) Creatinine 0.90 mg/dl (0.52-1.04) Glomerular Filtration Rate Calc > 60.0 Random Glucose 137 mg/dl (75-110) Lactate 1.3 mmol/L (0.7-2.1) Calcium Level 8.9 mg/dl (8.4-10.2) Total Bilirubin 0.7 mg/dl (0.2-1.3) Aspartate Amino Transf (AST/SGOT) 34 U/L (0-35) Alanine Aminotransferase (ALT/SGPT) 35 U/L (0-56) Alkaline Phosphatase 70 U/L (0-126) Troponin I < 0.012 ng/ml B-Type Natriuretic Peptide 38 pg/ml (0-100) Total Protein 7.0 g/dl (6.3-8.2) Albumin 4.3 g/dl (3.5-5.0) Chemistry Test 09/04/18 01:05 White Blood Count 5.0 k/uL (4.5-11.0) Red Blood Count 5.08 M/uL (4.17-5.56) Hemoglobin 15.1 g/dL (12.0-16.0) Hematocrit 45.8 % (34.0-47.0) Mean Corpuscular Volume 90.3 fL (80.0-96.0) Mean Corpuscular Hemoglobin 29.7 pg (26.0-33.0) Mean Corpuscular Hemoglobin Concent 32.9 g/dL (32.0-36.0) Red Cell Distribution Width 13.4 % (11.5-14.5) Platelet Count 155 K/uL (150-450) Mean Platelet Volume 9.2 fL (7.2-11.1) Neutrophils (%) (Auto) 86.9 % (39.4-72.5) Lymphocytes (%) (Auto) 7.1 % (17.6-49.6) Monocytes (%) (Auto) 5.7 % (4.1-12.4) Eosinophils (%) (Auto) 0.0 % (0.4-6.7) Basophils (%) (Auto) 0.3 % (0.3-1.4) Nucleated RBC Relative Count (auto) 0.5 /100WBC Neutrophils # (Auto) 4.3 K/uL (2.0-7.4) Lymphocytes # (Auto) 0.4 K/uL (1.3-3.6) Monocytes # (Auto) 0.3 K/uL (0.3-1.0) Eosinophils # (Auto) 0.0 K/uL (0.0-0.5) Basophils # (Auto) 0.0 K/uL (0.0-0.1) Nucleated RBC Absolute Count (auto) 0.02 K/uL Glomerular Filtration Rate Calc > 60.0 Lactate 1.3 mmol/L (0.7-2.1) Calcium Level 8.9 mg/dl (8.4-10.2) Total Bilirubin 0.7 mg/dl (0.2-1.3) Aspartate Amino Transf (AST/SGOT) 34 U/L (0-35) Alanine Aminotransferase (ALT/SGPT) 35 U/L (0-56) Alkaline Phosphatase 70 U/L (0-126) Troponin I < 0.012 ng/ml B-Type Natriuretic Peptide 38 pg/ml (0-100) Total Protein 7.0 g/dl (6.3-8.2) Albumin 4.3 g/dl (3.5-5.0) Microbiology Microbiology Date/Time Source Procedure Growth Status 09/04/18 01:12 Blood Peripheral Draw Blood Culture - Preliminary NO GROWTH AFTER 1 DAY, REINCUBATED Resulted 09/04/18 01:05 Blood Peripheral Draw Blood Culture - Preliminary NO GROWTH AFTER 1 DAY, REINCUBATED Resulted EKG/Imaging EKG Interpretation 12 lead EK Rhythm: normal sinus rhythm [place]: normal QRS: normal ST segments: normal, comparison to previous EKG 05/28/17, no significant morphologic change, previous EKG was sinus tachycardia at 143. There appeared to be some rate-related T-wave inversions. [ ] Imaging X-ray: Two-view chest x-ray was obtained. I viewed the images myself on the PACS system. My interpretation of the images is: Patchy right lower lobe infilt rate versus atelectasis, normal mediastinum. The radiologist interpretation had no clinically significant variation from this interpretation. ED Course/Re-evaluation Clinical Indication for ER IV: Hydration, IV Access ED Course Patient was admitted to an examination room. H&P was done. The differential diagnosis was considered. 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 Patient was seen in urgent care and started on doxycycline. 5 days ago as well as a prednisone taper. Patient was doing better. Gradually over the last 5 days, but tonight became suddenly worse and diaphoretic. With more shortness of breath. Repeat diagnostic studies are unremarkable. She has a normal white blood cell count. Chest x-ray shows right lower lobe atelectasis versus infiltrate. She has bilateral atelectasis noted. Patient's advised to discontinue the doxycycline and follow-up with primary care if unimproved in 3-5 days. I am suspicious she's having an adverse reaction to the doxycycline. Patient was placed on Ceftin 500 mg by mouth twice a day for continued treatment of her pneumonia versus atelectasis. Decision to Disposition Date: Sep 04, 2018 Decision to Disposition Time: 02:10 Depart Departure Latest Vital Signs Vital Signs Date Time Temp Pulse Resp B/P (MAP) Pulse Ox O2 Delivery O2 Flow Rate FiO2 09/04/18 02:54 73 89 09/04/18 02:30 117/64 (81) 09/04/18 02:24 30 09/04/18 02:19 Room Air 09/04/18 01:13 2.0 09/04/18 00:53 98.7 Impression: Primary Impression: Right lower lobe pulmonary infiltrate Additional Impressions: Chronic anticoagulation Asthma Condition: Improved Disposition: HOME OR SELF-CARE Referrals: KELLY ISSA DO (PCP) New Scripts Cefuroxime Axetil (CEFUROXIME) 500 Mg Tablet 500 MG PO BID for infection, #14 TAB Prov: ROMARIO DUMONT DO 09/04/18 Departure Forms: ER Transition Record, Home Oxygen, Nebulizer RX, Medications Reconciliation, Patient Portal Information Patient Instructions: Asthma (ED), Bacterial Pneumonia (ED) Additional Instructions: Stop doxycycline Follow-up with your primary care in 4-5 days for recheck of your pulse ox Problem Qualifiers Additional Impressions: Asthma Asthma severity: mild Asthma persistence: intermittent Asthma com plication type: with acute exacerbation Qualified Codes: J45.21 - Mild intermittent asthma with (acute) exacerbation ROMARIO DUMONT DO Sep 04, 2018 00:52
[2018-09-04] MEDS ORDERED: NS(*) 0.9% 1000 ML BAG 1,000 ML IV ONE (00:58)
[2018-09-04] MEDS ORDERED: methylPREDNIS SUCC 125 MG/2ML IVP ONE (01:00)
[2018-09-04] MEDS ORDERED: ALBUTEROL/IPRATROPIUM 3 ML NEB NEB ONE (01:00)
[2018-09-04 01:23] LABS: PLATELET COUNT, AUTOMATED 155 K/uL (150-450)
--- NOTE | 2018-09-04 01:37 | EKG ---
FACILITY: [facility] PATIENT NAME: MARÍA JEFFREY : [id number] MR: [id number] V: [id number] EXAM DATE: ORDERING PHYSICIAN: ROMARIO DUMONT TECHNOLOGIST: TEJA Test Reason : DYSPNEA Blood Pressure : / mmHG Vent. Rate : 078 BPM Atrial Rate : 078 BPM P-R Int : 154 ms QRS Dur : 070 ms QT Int : 382 ms P-R-T Axes : 018 -04 001 degrees QTc Int : 435 ms Normal sinus rhythm Normal ECG When compared with ECG of 28-MAY-2017 14:22, premature atrial complexes are no longer present Confirmed by ARY PALACIOS ([id number]) on 09/04/2018 5:54:56 AM Referred By: JULIA Confirmed By:ARY PALACIOS
--- NOTE | 2018-09-04 02:07 | RADIOLOGY IMAGING REPORT ---
FACILITY: [facility] PATIENT NAME: Iman Miranda : 1960 MR: [id number] V: [id number] EXAM DATE: ORDERING PHYSICIAN: ROMARIO DUMONT [place]CHNOLOG[place] [facility] [place] : 1960 Visit/Account:[id number] Date of Sevice: 09/04/2018 CHEST PA LAT HISTORY: Shortness of breath and dyspnea. Respiratory distress. COMPARISON: None. TECHNIQUE: PA and lateral views of the chest. FINDINGS: Pulmonary/pleura: There is right lower lobe patchy opacity. There is minimal left basilar opacity. Th ere is no pneumothorax or pleural effusion. Cardiomediastinal: Cardiac and mediastinal silhouettes are within normal limits. Bones/soft tissues: No acute osseous abnormality. There is mild degenerative change of the spine. The visible abdomen is normal. IMPRESSION: 1. Patchy right lower lobe opacity may be pneumonia versus atelectasis. 2. Mild left basilar atelectasis. Report Dictated By: Maria Chew at 09/04/2018 2:02 AM Report E-Signed By: Maria Chew at 09/04/2018 2:03 AM WSN:[id number]
[2018-09-04] MEDS ORDERED: CEFU500T10 PO (02:16)
[2018-09-04] MEDS ORDERED: CEFUROXIME AXETIL 250 MG TAB PO ONE (02:20)
[2018-09-04 02:30] VITALS: BP 117/64
== END 2018-09-04 02:55 | disposition home or self-care (01) ==
LOC: ER 01:09
DX: R91.8 Other nonspecific abnormal finding of lung field (principal); Z79.01 Long term (current) use of anticoagulants
CPT/HCPCS: 36415; 71046; 83605; 83880; 84484; 85025; 87040; 93005; 96361; 96374; 99284; J2930; J7030; J7620; 82040; 82247; 82310; 82374; 82435; 82565; 82947; 84075; 84132; 84155; 84295; 84450; 84460; 84520

== ENCOUNTER 2018-10-06 04:49 | Inpatient (IN) | payer BC ==
[~2018-10-06] VITALS: Ht 160 cm; Wt 102.3 kg
[~2018-10-06 04:49] MED LIST changes: +CEFU500T10 PO
--- NOTE | 2018-10-06 04:51 | ER Report ---
History and Physical Time Seen By MD: 04:51 (TERRA FAULKNER DO) HPI/ROS CHIEF COMPLAINT: Diffuse abdominal pain, nausea HISTORY OF PRESENT ILLNESS: Patient is a 58-year-old female here with complaints of diffuse abdominal pain, cramping, nausea, vomiting since approximately 1:00 this morning. Patient reports that she hasn't been unable to keep down fluids since time of onset. She does have a history significant for gastric bypass, cholecystectomy, appendectomy, partial small bowel resection. Patient is uncomfortable at time of evaluation, afebrile. Patient does have a history significant for Eliel-en-Y, partial small bowel obstruction due to clot, cholecystectomy, ventral hernia, appendectomy. Patient reports that her current symptoms consolation is very similar to when she had an obstruction due to clot formation in the small bowel prompting resection. REVIEW OF SYSTEMS: Constitutional: No fever, no chills. Eyes: No discharge. ENT: No sore throat. Cardiovascular: No chest pain, no palpitations. Respiratory: No cough, no shortness of breath. Gastrointestinal: + diffuse cramping abdominal pain, + nausea and vomiting. Genitourinary: No hematuria. Musculoskeletal: No back pain. Skin: No rashes. Neurological: No headache. (TERRA FAULKNER DO) Allergies: Coded Allergies: Opioids - Morphine Analogues (Verified Allergy, Severe, 10/06/18) ON VIVITROL- DO NOT GIVE OPIATES heparin (Verified Allergy, Severe, 10/06/18) Home Meds Reported Medications Naltrexone Microspheres (VIVITROL) 380 Mg Beatriz.er.rec, 380 MG IM DIRECTED INJECTION ONCE MONTHLY 10/06/18 Aripiprazole (ABILIFY) 5 Mg Tablet, 5 MG PO QDAY, #10 TAB 04/27/18 Rivaroxaban 10 MG (Xarelto 10 MG) 10 Mg Tablet, 20 PO QHS, #30 1 Refill 05/31/17 Cetirizine Hcl (ZYRTEC) 10 Mg Capsule, 10 MG PO QDAY, CAPSULE 05/28/17 Citalopram Hydrobromide (CELEXA) 10 Mg Tablet, 30 MG PO QDAY, TAB purchace otc 05/28/17 Thyroid,Pork (NATURE-THROID) 97.5 Mg Tablet, 97.5 MG PO QAM 01/06/17 Discontinued Scripts Cefuroxime Axetil (CEFUROXIME) 500 Mg Tablet, 500 MG PO BID for infection, #14 TAB Prov:ROMARIO DUMONT DO 09/04/18 Hx Smoking: No (QUIT 1979, 1/2 PPD X 2 YRS) Smoking Status: Former Smoker Exposure to Second Hand Smoke?: No Hx Substance Use Disorder: No Hx Alcohol Use: Yes (TERRA FAULKNER DO) Constitutional Vital Sign - Last 24 Hours 10/06/18 10/06/18 10/06/18 10/06/18 04:53 04:56 04:56 05:19 Temp 97.5 Pulse 57 59 Resp 20 B/P (MAP) 150/82 150/82 (104) 150/82 (104) Pulse Ox 96 97 O2 Delivery Room Air 10/06/18 10/06/18 10/06/18 10/06/18 05:19 05:37 05:37 05:49 Pulse 59 ??? B/P (MAP) 155/78 (103) 155/78 (103) Pulse Ox 97 94 10/06/18 10/06/18 10/06/18 10/06/18 05:49 06:04 06:04 06:19 Pulse ??? 68 68 62 Pulse Ox 94 85 85 83 10/06/18 10/06/18 10/06/18 10/06/18 06:19 06:27 06:27 06:45 Pulse 62 60 56 Pulse Ox 83 98 O2 Flow Rate 2.0 10/06/18 10/06/18 10/06/18 10/06/18 07:15 07:45 08:00 08:30 Pulse 64 68 71 66 Pulse Ox 97 95 96 96 10/06/18 10/06/18 10/06/18 10/06/18 09:00 09:30 10:00 10:30 Pulse 63 64 60 72 Pulse Ox 97 98 98 91 Intake and Output 10/05/18 10/05/18 10/06/18 15:00 23:00 07:00 Intake Total 1000 ml Balance 1000 ml (NOELLE CARR MD) Physical Exam General Appearance: The patient is alert, has no immediate need for airway protection and no signs of toxicity. Uncomfortable appearing Eyes: Pupils equal and round no pallor or injection. ENT, Mouth: Mucous membranes are moist. Respiratory: There are no retractions, lungs are clear to auscultation. Cardiovascular: Regular rate and rhythm. Gastrointestinal: Abdomen is soft and + diffusely tender without rebound or guarding Neurological: No focal deficits Skin: Warm and dry, no rashes. Musculoskeletal: Neck is supple non tender. Extremities are nontender, nonswollen and have full range of motion. DIFFERENTIAL DIAGNOSIS: After history and physical exam differential diagnosis was considered for abdominal pain including but not limited to appendicitis, cholecystitis, gastritis and urinary tract infection. (TERRA FAULKNER DO) Medical Decision Making Data Points Result Diagram: 10/06/18 0506 10/06/18 0506 Laboratory Hematology Test 10/06/18 04:52 10/06/18 05:06 10/06/18 05:41 Urine Color Yellow Urine Clarity Clear Urine pH 6.0 pH (4.8-9.5) Urine Specific [place] 1.024 Urine Protein Negative mg/dL (NEGATIVE) Urine Glucose (UA) Negative mg/dL (NEGATIVE) Urine Ketones Trace mg/dL (NEGATIVE) Urine Blood Negative (NEGATIVE) Urine Nitrite Negative (NEGATIVE) Urine Bilirubin Negative (NEGATIVE) Urine Urobilinogen 0.2 mg/dL (0.2-1.9) Urine Leukocyte Esterase Negative (NEGATIVE) Urine RBC 1 /HPF (0-2/HPF) Urine WBC 2 /HPF (0-5/HPF) Urine Squamous Epithelial Cells Many /LPF (</=FEW) Urine Bacteria Negative /HPF (NONE-FEW) Urine Mucus Few /HPF (NONE-FEW) Red Blood Count 5.68 M/uL (4.17-5.56) Mean Corpuscular Volume 88.6 fL (80.0-96.0) Mean Corpuscular Hemoglobin 29.1 pg (26.0-33.0) Mean Corpuscular Hemoglobin Concent 32.8 g/dL (32.0-36.0) Red Cell Distribution Width 13.2 % (11.5-14.5) Mean Platelet Volume 9.9 fL (7.2-11.1) Neutrophils (%) (Auto) 88.9 % (39.4-72.5) Lymphocytes (%) (Auto) 6.9 % (17.6-49.6) Monocytes (%) (Auto) 3.3 % (4.1-12.4) Eosinophils (%) (Auto) 0.2 % (0.4-6.7) Basophils (%) (Auto) 0.7 % (0.3-1.4) Nucleated RBC Relative Count (auto) 0.0 /100WBC Neutrophils # (Auto) 9.4 K/uL (2.0-7.4) Lymphocytes # (Auto) 0.7 K/uL (1.3-3.6) Monocytes # (Auto) 0.4 K/uL (0.3-1.0) Eosinophils # (Auto) 0.0 K/uL (0.0-0.5) Basophils # (Auto) 0.1 K/uL (0.0-0.1) Nucleated RBC Absolute Count (auto) 0.00 K/uL Prothrombin Time 12.7 seconds (12.0-14.4) Prothromb Time International Ratio 0.95 Activated Partial Thromboplast Time 27 seconds (23-35) Sodium Level 141 mmol/L (137-145) Potassium Level 4.0 mmol/L (3.5-5.0) Chloride Level 104 mmol/L (98-107) Carbon Dioxide Level 22 mmol/L (22-31) Blood Urea Nitrogen 16 mg/dl (7-18) Creatinine 0.90 mg/dl (0.52-1.04) Glomerular Filtration Rate Calc > 60.0 Random Glucose 166 mg/dl (75-110) Calcium Level 10.4 mg/dl (8.4-10.2) Total Bilirubin 1.4 mg/dl (0.2-1.3) Aspartate Amino Transf (AST/SGOT) 25 U/L (0-35) Alanine Aminotransferase (ALT/SGPT) 31 U/L (0-56) Alkaline Phosphatase 85 U/L (0-126) Total Protein 7.5 g/dl (6.3-8.2) Albumin 4.7 g/dl (3.5-5.0) Lipase 87 U/L (23-300) Lactate 3.2 mmol/L (0.7-2.1) Chemistry Test 10/06/18 04:52 10/06/18 05:06 10/06/18 05:41 Urine Color Yellow Urine Clarity Clear Urine pH 6.0 pH (4.8-9.5) Urine Specific [place] 1.024 Urine Protein Negative mg/dL (NEGATIVE) Urine Glucose (UA) Negative mg/dL (NEGATIVE) Urine Ketones Trace mg/dL (NEGATIVE) Urine Blood Negative (NEGATIVE) Urine Nitrite Negative (NEGATIVE) Urine Bilirubin Negative (NEGATIVE) Urine Urobilinogen 0.2 mg/dL (0.2-1.9) Urine Leukocyte Esterase Negative (NEGATIVE) Urine RBC 1 /HPF (0-2/HPF) Urine WBC 2 /HPF (0-5/HPF) Urine Squamous Epithelial Cells Many /LPF (</=FEW) Urine Bacteria Negative /HPF (NONE-FEW) Urine Mucus Few /HPF (NONE-FEW) White Blood Count 10.5 k/uL (4.5-11.0) Red Blood Count 5.68 M/uL (4.17-5.56) Hemoglobin 16.5 g/dL (12.0-16.0) Hematocrit 50.4 % (34.0-47.0) Mean Corpuscular Volume 88.6 fL (80.0-96.0) Mean Corpuscular Hemoglobin 29.1 pg (26.0-33.0) Mean Corpuscular Hemoglobin Concent 32.8 g/dL (32.0-36.0) Red Cell Distribution Width 13.2 % (11.5-14.5) Platelet Count 199 K/uL (150-450) Mean Platelet Volume 9.9 fL (7.2-11.1) Neutrophils (%) (Auto) 88.9 % (39.4-72.5) Lymphocytes (%) (Auto) 6.9 % (17.6-49.6) Monocytes (%) (Auto) 3.3 % (4.1-12.4) Eosinophils (%) (Auto) 0.2 % (0.4-6.7) Basophils (%) (Auto) 0.7 % (0.3-1.4) Nucleated RBC Relative Count (auto) 0.0 /100WBC Neutrophils # (Auto) 9.4 K/uL (2.0-7.4) Lymphocytes # (Auto) 0.7 K/uL (1.3-3.6) Monocytes # (Auto) 0.4 K/uL (0.3-1.0) Eosinophils # (Auto) 0.0 K/uL (0.0-0.5) Basophils # (Auto) 0.1 K/uL (0.0-0.1) Nucleated RBC Absolute Count (auto) 0.00 K/uL Prothrombin Time 12.7 seconds (12.0-14.4) Prothromb Time International Ratio 0.95 Activated Partial Thromboplast Time 27 seconds (23-35) Glomerular Filtration Rate Calc > 60.0 Calcium Level 10.4 mg/dl (8.4-10.2) Total Bilirubin 1.4 mg/dl (0.2-1.3) Aspartate Amino Transf (AST/SGOT) 25 U/L (0-35) Alanine Aminotransferase (ALT/SGPT) 31 U/L (0-56) Alkaline Phosphatase 85 U/L (0-126) Total Protein 7.5 g/dl (6.3-8.2) Albumin 4.7 g/dl (3.5-5.0) Lipase 87 U/L (23-300) Lactate 3.2 mmol/L (0.7-2.1) Coagulation Test 10/06/18 05:06 Prothrombin Time 12.7 seconds Prothromb Time International Ratio 0.95 Activated Partial Thromboplast Time 27 seconds Urinalysis Test 10/06/18 04:52 Urine Color Yellow Urine Clarity Clear Urine pH 6.0 pH (4.8-9.5) Urine Specific [place] 1.024 Urine Protein Negative mg/dL (NEGATIVE) Urine Glucose (UA) Negative mg/dL (NEGATIVE) Urine Ketones Trace mg/dL (NEGATIVE) Urine Blood Negative (NEGATIVE) Urine Nitrite Negative (NEGATIVE) Urine Bilirubin Negative (NEGATIVE) Urine Urobilinogen 0.2 mg/dL (0.2-1.9) Urine Leukocyte Esterase Negative (NEGATIVE) Urine RBC 1 /HPF (0-2/HPF) Urine WBC 2 /HPF (0-5/HPF) Urine Squamous Epithelial Cells Many /LPF (</=FEW) Urine Bacteria Negative /HPF (NONE-FEW) Urine Mucus Few /HPF (NONE-FEW) (NOELLE CARR MD) ED Course/Re-evaluation ED Course Patient is a 58-year-old female here with complaints of diffuse abdominal pain, nausea, vomiting since approximately 1:00 this morning. Patient was given IV fluids, Zofran, Toradol. Patient does have a significant history for a Eliel-en-Y, partial small bowel resection due to clot, on anticoagulation, prior history of cholecystectomy, appendectomy, hernias. CT imaging was consistent with possible early or partial bowel obstruction, ileus. I discussed the patient with Dr. Martin with surgery who recommended transfer to bariatric surgery due to proximity to Eliel-en-Y. I discussed the patient with Dr. Thomas [facility] bariatric surgery who recommended further discussion with Dr. Martin. Patient was signed out to Dr. Carr at shift change. Decision to Disposition Date: October 06, 2018 Decision to Disposition Time: 07:00 (TERRA FAULKNER DO) ED Course ED course patient endorsed over to me this morning partial small bowel resection but due to a prior procedure it was concerning to keep the patient here our general surgeon initially wanted transferred to receiving Hospital declined and wanted to speak directly the surgeon the communication to place the patient be admitted here to our institution Decision to Disposition Date: October 06, 2018 Decision to Disposition Time: 10:44 (NOELLE CARR MD) Depart Departure Latest Vital Signs Vital Signs Date Time Temp Pulse Resp B/P (MAP) Pulse Ox O2 Delivery O2 Flow Rate FiO2 10/06/18 10:30 72 91 10/06/18 06:27 2.0 10/06/18 05:37 155/78 (103) 10/06/18 04:53 97.5 20 Room Air (NOELLE CARR MD) Impression: Primary Impression: Partial small bowel obstruction Condition: Improved Disposition: Admitted from ER Referrals: KELLY ISSA DO (PCP) TERRA FAULKNER DO October 06, 2018 04:51 NOELLE CARR MD October 06, 2018 10:45
[2018-10-06] MEDS ORDERED: NALT380S4 IM (04:59)
[2018-10-06] MEDS ORDERED: NS(*) 0.9% 1000 ML BAG 1,000 ML IV ONE (05:09)
[2018-10-06] MEDS ORDERED: KETOROLAC 30 MG/ML VIAL IVP ONE ×2 (05:10→09:45)
[2018-10-06] MEDS ORDERED: ONDANSETRON 4 MG/2 ML VIAL IVP ONE ×2 (05:10→09:45)
[2018-10-06] MEDS ORDERED: MAG HYD/AL HYD/SIMETH 30ML UDC PO ONE (05:20)
[2018-10-06] MEDS ORDERED: LIDOCAINE 2% VISC SLN 15ML UDC PO ONE (05:20)
[2018-10-06] MEDS ORDERED: IOPAMIDOL 76% 100 ML INFUS BTL 100 ML ONE (05:23)
[2018-10-06 06:05] LABS: PLATELET COUNT, AUTOMATED 199 K/uL (150-450)
[2018-10-06 06:08] LABS: INR 0.95
--- NOTE | 2018-10-06 06:15 | RADIOLOGY IMAGING REPORT ---
FACILITY: [facility] [place] PATIENT NAME: Iman Miranda : 1960 MR: [id number] V: [id number] EXAM DATE: [id number] ORDERING PHYSICIAN: TERRA FAULKNER TECHNOLOGIST: Location: [facility] Patient: Iman Miranda : 1960 Visit/Account:[id number] Date of Sevice: 10/06/2018 COMPUTED TOMOGRAPHY ABDOMEN AND PELVIS WITH INTRAVENOUS CONTRAST DATE OF EXAM: 10/06/2018 5:09 AM INDICATION: Abdominal pain. COMPARISON: Chest radiographs 09/04/2018. TECHNIQUE: Contrast enhanced abdomen and pelvis CT performed during the injection of ml of Isovue 370 . Sagittal and coronal reconstructions were performed. One of the following dose optimization techn iques was utilized in the performance of this exam: Automated exposure control; adjustment of the mA and/or kV according to the patient's size; or use of an iterative reconstruction technique. Specifi c details can be referenced in the facility's radiology CT exam operational policy. FINDINGS: Lung bases: Mild atelectasis. Liver and hepatic vasculature: Normal. Gallbladder and bile ducts: Normal. Spleen: Normal Pancreas: Normal. Adrenals: Normal. Kidneys, ureters and bladder: No acute abnormality or suspicious lesion. 12 mm cyst in the midporti on of the right kidney. Retroperitoneum and aorta: Normal aorta. No retroperitoneal adenopathy. GI tract, mesentery and peritoneum: Postoperative appearance of the stomach and proximal small bowel consistent with Eliel-en-Y type gastric bypass. Other portions of the transverse colon may be adhere nt to the anterior abdominal wall. Multiple dilated mildly dilated loops of small bowel contains fec ulent material. There is a gradual transition to decompressed small bowel in the right midabdomen. Most of the colon is decompressed. Multiple small ventral hernias in the upper abdominal wall. One on image 64 series 2 may contain a knuckle of the transverse colon. No pneumatosis, pneumoperitoneum or significant free fluid. There is not appear to be a significant amount of mesenteric edema. Uterus and adnexa: Hysterectomy. Bones and soft tissues: Ventral hernias as above. No suspicious lesion. Left sided sacral nerve st imulator in place. IMPRESSION: 1. Multiple dilated loops of small bowel containing feculent material with gradual transition to dec ompressed distal small bowel. Ileus/dysmotility an early or partial small bowel obstruction are cons iderations. 2. Eliel-en-Y gastric bypass. 3. Several small ventral hernias in the upper abdomen, one of which contains a knuckle of the transv erse colon, no evidence of associated acute complication. Dr. Funes discussed this case with TERRA FAULKNER on 10/06/2018 6:11 AM. Report Dictated By: Fletcher Funes MD at 10/06/2018 5:50 AM Report E-Signed By: Fletcher Funes MD at 10/06/2018 6:12 AM WSN:[id number]
[2018-10-06] MEDS ORDERED: fentaNYL CITR 100 MCG/2 ML AMP IVP ONE (09:35)
[2018-10-06 11:40] VITALS: BP 148/84
--- NOTE | 2018-10-06 12:54 | Gen Surgery History & Physical ---
History of Present Illness Chief Complaint abd pain, vomiting History of Present Illness 58 yo f with abd pain, bloating and vomiting since 0100 this am. these symptoms are improved now. has felt hot/cold. has had diarrhea, most recently at 0300 this am. no blood in stool. rnygb 28 yrs ago. sbr due to clot. no h/o hernia repair. History Home Meds Reported Medications Naltrexone Microspheres (VIVITROL) 380 Mg Beatriz.er.rec, 380 MG IM DIRECTED INJECTION ONCE MONTHLY 10/06/18 Aripiprazole (ABILIFY) 5 Mg Tablet, 5 MG PO QDAY, #10 TAB 04/27/18 Rivaroxaban 10 MG (Xarelto 10 MG) 10 Mg Tablet, 20 PO QHS, #30 1 Refill 05/31/17 Cetirizine Hcl (ZYRTEC) 10 Mg Capsule, 10 MG PO QDAY, CAPSULE 05/28/17 Citalopram Hydrobromide (CELEXA) 10 Mg Tablet, 30 MG PO QDAY, TAB purchace otc 05/28/17 Thyroid,Pork (NATURE-THROID) 97.5 Mg Tablet, 97.5 MG PO QAM 01/06/17 Discontinued Scripts Cefuroxime Axetil (CEFUROXIME) 500 Mg Tablet, 500 MG PO BID for infection, #14 TAB Prov:ROMARIO DUMONT DO 09/04/18 Allergies: Coded Allergies: Opioids - Morphine Analogues (Verified Allergy, Severe, 10/06/18) ON VIVITROL- DO NOT GIVE OPIATES heparin (Verified Allergy, Severe, 10/06/18) Patient History: FH: colon cancer MOTHER FHx: alcoholism Review of Systems Constitutional: Other (per hpi) Exam General Appearance: Alert, Awake Neuro: No Gross deficits Eyes: Other Neck: No Masses Cardiovascular: Other (reg rate) Respiratory: No Respiratory Distress GI: Other (abd soft, obese, at most mildly ttp diffusely) Integumentary: Skin Intact without Lesion / Mass Psych: Alert & Oriented X3, Appropriate Mood & Affect Medical Decision Making Data Points Result Diagram: 10/06/18 0506 10/06/18 0506 Assessment and Plan Problems: (1) SBO (small bowel obstruction) Assessment & Plan: 10/06/18: abd pain improving. +bms (diarrhea). partial sbo with unknown transition point. i spoke with radiology - pt has a wall of transverse colon protruding through hernia defect but this is not inflamed and does not appear to be a transition point. i spoke with dr. pereyra, bariatric surgeon, at [facility]. he reviewed the images and does not believe this to be a bariatric issue. he did not feel transfer was necessary. will admit pt. serial exams. npo. pain/nausea control. to OR if condition worsens or does not improve. Venous Thromboembolism Antithrombotics Is Pt On Any Antithrombotics?: Yes RANDY HENDRIX October 06, 2018 12:54
[2018-10-06] MEDS ORDERED: KETOROLAC 30 MG/ML VIAL IVP PRN (15:55)
[2018-10-06 16:13] VITALS: BP 122/74
[2018-10-06 18:42] VITALS: BP 116/64
[2018-10-06] MEDS ORDERED: ONDANSETRON 4 MG/2 ML VIAL IVP PRN (22:45)
[2018-10-06] MEDS ORDERED: PROMETHAZINE 25 MG/ML 1 ML AMP IVP PRN (22:45)
[2018-10-07] MEDS: NS(*) 0.9% 1000 ML BAG 1,000 ML IV PRN ×3 (05:30→22:56)
[2018-10-07 05:53] LABS: PLATELET COUNT, AUTOMATED 146 K/uL (150-450)
--- NOTE | 2018-10-07 06:40 | RADIOLOGY IMAGING REPORT ---
FACILITY: [facility] PATIENT NAME: Iman Miranda : 1960 MR: [id number] V: [id number] EXAM DATE: ORDERING PHYSICIAN: RANDY HENDRIX TECHNOLOGIST: Location: [facility] Patient: Iman Miranda : 1960 Visit/Account:[id number] Date of Sevice: 10/07/2018 INDICATION: Small bowel obstruction EXAM DATE: 10/07/2018 5:00 AM COMPARISON: CT yesterday. FINDINGS: Single AP supine images of the abdomen. Redemonstration mildly dilated small bowel loops in the left midabdomen. No pneumatosis, pneumoperito neum or portal venous gas. No evidence of large volume ascites or mass. Anastomotic material in the left abdomen consistent with prior lower lumbar bypass as seen on CT. Sacral nerve stimulator. IMPRESSION: Persistent mildly dilated loops of small bowel which could indicate ileus or early/partia l obstruction. Report Dictated By: Fletcher Funes MD at 10/07/2018 6:34 AM Report E-Signed By: Fletcher Funes MD at 10/07/2018 6:37 AM WSN:[id number]
[2018-10-07 06:41] VITALS: BP 124/67
--- NOTE | 2018-10-07 10:14 | Medical Nutrition Therapy ---
Nutrition Anthropometrics Height (Inches): 63.00 Height (Calculated Centimeters: 160.172690 Weight (Pounds): 225 Weight (Calculated Kilograms): 102.313 BMI: 39.9 Ashutosh Nutrition Score: Adequate Ashutosh Nutrition Risk Score: 21 Dietary Referral Nutrition Risk Factors: Nutrition Risk Comment: LOST 45 # IN THE PAST YEAR & A HALF. Physical Findings Physical Appearance: Obese BMI 30-39 Skin Appearance Skin Appearance: Edema Edema Location Modifier: Edema Location: Type of Edema: Degree of Edema: Gastrointestinal Symptoms GI Symtoms: Nausea, Diarrhea,Tender Tube Present: Bowel Sounds: Hyperactive Recent Bowel Pattern: Diarrhea Stool Characteristics: Nutrition/Food History N/V Nutritional Diagnosis Nutritional Risk Acuity 1: GI Obstruction, Short Bowel Syndrome Past Medical History: RNYGB-28years ago, hypothyroid, hypercholesterolemia Nutritional Acuity: 1-High Nutrition Diagnosis: Inadequate Food Intake Nutrition Etiology: Malabsorption/Intolerance, Physiological Causes Nutrition Problem/Etiology/Sym: Small bowel obstruction, NPO Status, RNYGB 28 yrs ago Energy Requirement: 1534 (15kcal/kg) Protein Requirement: 82 (.8g/kg ABW) Fluid Requirement: 2045 (20mL/kg) Diet Type: NPO (Nothing by Mouth) Nutrition Intervention: Incr diet as tolerated Nutrition Monitoring & Eval Nutrition Follow-Up: Poor Intake Nutrition Monitoring: Monitor NPO status. RD Patient Assessment Time: [address] Assessment Type: RD Assessment Patient Nutrition Acuity: 1-High Follow Up Date: October 07, 2018 Nutritional Comment: Pt admit for partial SBO. Symptoms of vomiting,diarrhea, bloating. Had RNYGB 28 years ago. 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 Continue to monitor NPO status and need for education. IVANIA VIKC October 07, 2018 10:14
[2018-10-07 10:35] VITALS: BP 106/70
--- NOTE | 2018-10-07 11:13 | General Surgery Progress Note ---
Subjective Progress Notes Subjective periodic cramping, but no constant pain. +flatus. no vomiting. jim clears. Physical Exam Vital Signs Date Time Temp Pulse Resp B/P (MAP) Pulse Ox O2 Delivery O2 Flow Rate FiO2 10/07/18 10:35 97.8 14 106/70 (82) 94 Nasal Cannula 1.0 10/07/18 06:41 59 Intake and Output 10/07/18 07:00 Intake Total 1400 ml Balance 1400 ml Intake Oral 400 ml IV Total 1000 ml General Appearance: No Acute Distress Cardiovascular: Other (reg rate) GI: Other (abd soft) Result Diagram: 10/07/18 0510/07/18535 Assessment and Plan Problems: (1) SBO (small bowel obstruction) Assessment & Plan: 10/06/18: abd pain improving. +bms (diarrhea). partial sbo with unknown transition point. i spoke with radiology - pt has a wall of transverse colon protruding through hernia defect but this is not inflamed and does not appear to be a transition point. i spoke with dr. pereyra, bariatric surgeon, at [facility]. he reviewed the images and does not believe this to be a bariatric issue. he did not feel transfer was necessary. will admit pt. serial exams. npo. pain/nausea control. to OR if condition worsens or does not improve. 10/07/18: cramping pain. cont clears. serial exams. may give gastrografin if no definite resolution soon. Exam Sepsis Risk: No Definite Risk RANDY HENDRIX October 07, 2018 11:13
[2018-10-07 15:52] VITALS: BP 119/75
[2018-10-07 19:27] VITALS: BP 114/75
[2018-10-07] MEDS ORDERED: RIVAROXABAN 10 MG TAB PO SCH (21:00)
[2018-10-07 23:57] VITALS: BP 114/67
[2018-10-08 04:57] VITALS: BP 130/78
[2018-10-08] MEDS: NS(*) 0.9% 1000 ML BAG 1,000 ML IV PRN (05:17)
[2018-10-08] MEDS ORDERED: DIATRIZOATE MEGL/DIATRIZOA SOD 120 ML SOLN PO ONE (06:53)
[2018-10-08 07:18] VITALS: BP 123/75
--- NOTE | 2018-10-08 08:43 | General Surgery Progress Note ---
Subjective Progress Notes Subjective no pain. +flatus. no bm in last 24 hrs. Physical Exam Vital Signs Date Time Temp Pulse Resp B/P (MAP) Pulse Ox O2 Delivery O2 Flow Rate FiO2 10/08/18 07:18 97.8 56 16 123/75 (91) 94 Nasal Cannula 10/08/18 04:57 1.0 Intake and Output 10/08/18 06:59 Intake Total 3786 ml Balance 3786 ml Intake Oral 840 ml IV Total 2946 ml # Voids 4 Result Diagram: 10/07/18 0536 10/07/1836 Assessment and Plan Problems: (1) SBO (small bowel obstruction) Assessment & Plan: 10/06/18: abd pain improving. +bms (diarrhea). partial sbo with unknown transition point. i spoke with radiology - pt has a wall of transverse colon protruding through hernia defect but this is not inflamed and does not appear to be a transition point. i spoke with dr. pereyra, bariatric surgeon, at [facility]. he reviewed the images and does not believe this to be a bariatric issue. he did not feel transfer was necessary. will admit pt. serial exams. npo. pain/nausea control. to OR if condition worsens or does not improve. 10/07/18: cramping pain. cont clears. serial exams. may give gastrografin if no definite resolution soon. 10/08/18: doing well but no bm. gastrografin study today. Exam Sepsis Risk: No Definite Risk RANDY HENDRIX October 08, 2018 08:43
[2018-10-08 12:18] VITALS: BP 143/56
--- NOTE | 2018-10-08 15:03 | RADIOLOGY IMAGING REPORT ---
FACILITY: [facility] PATIENT NAME: Iman Miranda : 1960 MR: [id number] V: [id number] EXAM DATE: ORDERING PHYSICIAN: RANDY HENDRIX TECHNOLOGIST: Location: [facility] Patient: Iman Miranda : 1960 Visit/Account:[id number] Date of Sevice: 10/08/2018 Exam type: XR SMALL BOWEL SERIES History: sbo Comparison: CT abdomen pelvis October 06, 2018 and KUB October 07, 2018. Findings: The patient received 480 mg of a Gastrografin suspension orally. An immediate image was obtained dem onstrating Gastrografin in multiple loops of small bowel throughout both right and left sides of the abdomen. The most dilated loop measured approximately 5.8 centers in diameter. Most of the loops in the right-sided the abdomen did not appear dilated. A two hour image was obtained demonstrating mos t of the Gastrografin entered the colon to the level the rectum. Only a small amount of Gastrografin remained in distal ileal loops. Fluoroscopy was not utilized IMPRESSION: 1. Findings are not consistent with small bowel obstruction at this time. Report Dictated By: Betty Bower MD at 10/08/2018 2:56 PM Report E-Signed By: Betty Bower MD at 10/08/2018 2:59 PM WSN:[email or web address]
[2018-10-08 15:22] VITALS: BP 131/77
--- NOTE | 2018-10-08 15:44 | Hospitalist Depart ---
Discharge Summary Reason for Hosp/Final Diag: (1) SBO (small bowel obstruction) Hospital Course & Plan: 10/06/18: abd pain improving. +bms (diarrhea). partial sbo with unknown transition point. i spoke with radiology - pt has a wall of transverse colon protruding through hernia defect but this is not inflamed and does not appear to be a transition point. i spoke with dr. pereyra, bariatric surgeon, at [facility]. he reviewed the images and does not believe this to be a bariatric issue. he did not feel transfer was necessary. will admit pt. serial exams. npo. pain/nausea control. to OR if condition worsens or does not improve. 10/07/18: cramping pain. cont clears. serial exams. may give gastrografin if no definite resolution soon. 10/08/18: doing well but no bm. gastrografin study today. gastrografin study normal. no pain. +bms. d/c home. Departure Weight (Pounds): 225 Weight (Ounces): 9.0 Result Diagram: 10/07/1836 10/07/18 0536 Condition: Improved Discharge Instructions Home Meds Reported Medications Naltrexone Microspheres (VIVITROL) 380 Mg Beatriz.er.rec, 380 MG IM DIRECTED INJECTION ONCE MONTHLY 10/06/18 Aripiprazole (ABILIFY) 5 Mg Tablet, 5 MG PO QDAY, #10 TAB 04/27/18 Rivaroxaban 10 MG (Xarelto 10 MG) 10 Mg Tablet, 20 PO QHS, #30 1 Refill 05/31/17 Cetirizine Hcl (ZYRTEC) 10 Mg Capsule, 10 MG PO QDAY, CAPSULE 05/28/17 Citalopram Hydrobromide (CELEXA) 10 Mg Tablet, 30 MG PO QDAY, TAB purchace otc 05/28/17 Thyroid,Pork (NATURE-THROID) 97.5 Mg Tablet, 97.5 MG PO QAM 01/06/17 Discontinued Scripts Cefuroxime Axetil (CEFUROXIME) 500 Mg Tablet, 500 MG PO BID for infection, #14 TAB Prov:ROMARIO DUMONT DO 09/04/18 Diet: Regular Activity: As Tolerated Special Instructions: f/u dr. cain pennington prn Venous Thromboembolism Antithrombotics Is Pt On Any Antithrombotics?: Yes RANDY HENDRIX October 08, 2018 15:44
== END 2018-10-08 17:25 | disposition home or self-care (01) | DRG 395 ==
LOC: ER 05:27 → MED 11:01
PROVIDERS: ADMIT Surgery; ATTEND Surgery
DX: K43.6 Other and unspecified ventral hernia with obstruction, without gangrene (principal); Z90.49 Acquired absence of other specified parts of digestive tract; Z98.84 Bariatric surgery status; Z88.5 Allergy status to narcotic agent; Z88.8 Allergy status to other drugs, medicaments and biological substances; Z87.891 Personal history of nicotine dependence
CPT/HCPCS: 36415; 74018; 74177; 74250; 81001; 82040; 82247; 82310; 82374; 82435; 82565; 82947; 83605; 83690; 84075; 84132; 84155; 84295; 84450; 84460; 84520; 85025; 85610; 85730; 96374; 96375; 96376; 99284; J1885; J2405; J7030; Q9967

== ENCOUNTER → 2018-10-27 | Outpatient (CLI) | payer BC ==
[~2018-10-27] MED LIST changes: +NALT380S4 IM
--- NOTE | 2018-10-27 11:36 | RADIOLOGY IMAGING REPORT ---
FACILITY: [facility] PATIENT NAME: Iman Miranda : 1960 MR: [id number] V: [id number] EXAM DATE: ORDERING PHYSICIAN: KELLY ISSA TECHNOLOGIST: Location: [facility] [place] Patient: Iman Miranda : 1960 Visit/Account:[id number] Date of Sevice: 10/27/2018 Exam type: CHEST PA AND LAT History: Follow-up pneumonia Comparison: 09/04/2018. Findings: Lungs are hyperinflated. The previously described right lower lobe opacity has resolved likely a res olved pneumonia. No focal infiltrate, pleural effusion or pneumothorax. Heart size is prominent. The osseous structures are unremarkable. IMPRESSION: 1. No acute cardiopulmonary disease. 2. Interval resolution of the previously described right lower lobe opacity. Report Dictated By: Jose M Downing MD at 10/27/2018 11:29 AM Report E-Signed By: Jose M Downing MD at 10/27/2018 11:31 AM WSN:[email or web address]
== END ==
LOC: RAD 10:54
PROVIDERS: ATTEND Family Medicine
DX: J18.9 Pneumonia, unspecified organism (principal)
CPT/HCPCS: 71046